=== PATIENT | male | born 1995 | race African-American/Black ===

== ENCOUNTER 2019-12-27 09:35 | Emergency (ER) | payer SELFPAY ==
[~2019-12-27] VITALS: Ht 180.3 cm; Wt 102.5 kg
[2019-12-27] MEDS ORDERED: ONDANSETRON HCL 4 MG ORAL DISINTEGRATING TAB ONE (09:47)
[2019-12-27] MEDS ORDERED: SODIUM CHLORIDE 0.9% 1000ML 1,000 ML IV STA ×2 (09:50→11:18)
[2019-12-27] MEDS ORDERED: PANTOPRAZOLE 40 MG 10ML VIAL IV STA (09:50)
[2019-12-27] MEDS ORDERED: KETOROLAC TROMETHAMINE 30 MG/ML VIAL IV STA (09:50)
[2019-12-27] MEDS ORDERED: ONDANSETRON HCL INJ 2MG/ML 2ML 2 MG/ML VIAL IV STA (09:50)
[2019-12-27] MEDS ORDERED: MORPHINE SULFATE INJ 4 MG/ML INJ 1ML IV STA (09:57)
[2019-12-27] MEDS ORDERED: ONDANSETRON HCL 4 MG ORAL DISINTEGRATING TAB PO ONE (10:00)
[2019-12-27 10:29] LABS: BASOPHILS # (AUTO) 0.1 (0.0-0.1); BASOPHILS % 1.1 % (0.0-1.0); EOSINOPHILS # (AUTO) 0.1 (0.0-0.4); EOSINOPHILS % 1.1 % (0.0-6.0); HEMATOCRIT 52.3 % (38.2-49.6); LYMPHOCYTES # (AUTO) 1.6 (1.0-3.2); LYMPHOCYTES % 21.5 % (18.0-39.1); MEAN CORPUSCULAR HEMOGLOBIN 32.4 pg (28-32); MEAN CORPUSCULAR HGB CONC 36.3 g/dL (31-35); MEAN CORPUSCULAR VOLUME 89.2 fL (81-99); MONOCYTES # (AUTO) 0.5 (0.2-0.8); MONOCYTES % 7.1 % (4.4-11.3); NEUTROPHILS % 68.7 % (38.7-80.0); PLATELET COUNT 280 x10e3/uL (140-360); RED BLOOD COUNT 5.86 x10e6/uL (4.3-5.7); RED CELL DISTRIBUTION WIDTH 11.9 % (11.7-14.4)
--- NOTE | 2019-12-27 10:29 | Diagnostic Imaging Report ---
EXAMINATION: CHEST SINGLE (PORTABLE) INDICATION: Shortness of breath, abdominal pain COMPARISON: None FINDINGS: LINES/TUBES:None LUNGS:The lungs are well-inflated. No focal consolidation or pulmonary edema. PLEURA:No pleural effusion or pneumothorax. MEDIASTINUM:The cardiomediastinal silhouette appears normal in size and shape. BONES/SOFT TISSUES:No acute osseous injury. ABDOMEN:No free air under the diaphragm. IMPRESSION: No focal pneumonia or pulmonary edema. Signed by: Betty Anne MD on 12/27/2019 10:25 AM
[2019-12-27] MEDS ORDERED: HALOPERIDOL 5 MG TAB PO ONE (10:30)
[2019-12-27 10:54] LABS: ALANINE AMINOTRANSFERASE 15 IU/L (0-55); ALBUMIN/GLOBULIN RATIO 1.6 (0.8-2.0); ALKALINE PHOSPHATASE 48 IU/L (40-150); ANION GAP 18.9 mmol/L (8-16); BLOOD UREA NITROGEN 14 mg/dL (7-26); BUN/CREATININE RATIO 12 (6-25); CALCIUM 10.4 mg/dL (8.4-10.2); CARBON DIOXIDE 23 mmol/L (22-29); CHLORIDE 103 mmol/L (98-107); CREATININE, SERUM 1.13 mg/dL (0.72-1.25); EST GLOMERULAR FILTRATION RATE > 60 ML/MIN (60-); GLUCOSE 103 mg/dL (74-118); MAGNESIUM 2.1 MG/DL (1.3-2.1); POTASSIUM 3.9 mmol/L (3.5-5.1); SODIUM 141 mmol/L (136-145)
[2019-12-27] MEDS ORDERED: IOPAMIDOL 370 MG/ML 200 ML INFUS..BTL INJ ONE (11:08)
[2019-12-27] MEDS ORDERED: SODIUM CHLORIDE 0.9% 50ML 50 ML ONE (11:08)
[2019-12-27 11:18] LABS: INR 0.93; PARTIAL THROMBOPLASTIN TIME 26.7 seconds (23.8-35.5)
--- NOTE | 2019-12-27 11:37 | Diagnostic Imaging Report ---
EXAM: CT Abdomen and Pelvis WITH intravenous contrast INDICATION: Right lower quadrant abdominal pain COMPARISON: Chest radiograph of the same day TECHNIQUE: Abdomen and pelvis were scanned utilizing a multidetector helical scanner from the lung base to the pubic symphysis after administration of IV contrast. Coronal and sagittal reformations were obtained. Routine protocol was performed. Scan was performed during portal venous phase. IV CONTRAST: 100mL of Isovue 370 ORAL CONTRAST: Water RADIATION DOSE: Total DLP: 476 mGy*cm Dose modulation, iterative reconstruction, and/or weight based adjustment of the mA/kV was utilized to reduce the radiation dose to as low as reasonably achievable. FINDINGS: LOWER THORAX: Normal. HEPATOBILIARY: No focal liver lesion. No biliary ductal dilation. Normal gallbladder. SPLEEN: No splenomegaly. PANCREAS: No focal masses or ductal dilatation. ADRENALS: No adrenal nodules. KIDNEYS/URETERS: No renal calculi or hydronephrosis. Abnormal rotation of the right kidney, likely congenital. PELVIC ORGANS/BLADDER: Unremarkable. PERITONEUM / RETROPERITONEUM: No free air or fluid. LYMPH NODES: No lymphadenopathy. VESSELS: Unremarkable. GI TRACT: No abnormal bowel thickening. No bowel obstruction. Normal appendix. BONES AND SOFT TISSUES: No acute osseous injury. No suspicious lytic or blastic lesions. IMPRESSION: No acute findings in the abdomen or pelvis. Specifically, no evidence of appendicitis. Signed by: Betty Anne MD on 12/27/2019 11:34 AM
[2019-12-27] MEDS ORDERED: PROMETHAZINE 25MG/ NS 50ML (IV) IV ONE (12:00)
[2019-12-27] MEDS ORDERED: PROMETHAZINE 25MG/SOD CHL 0.9% 50 ML ONE (12:08)
--- OUTSIDE RECORDS SUMMARY | 2019-12-27 19:22 | XMS REPORT ---
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 Allergies, Adverse Reactions, Alerts Allergy Name Allergy Type Status Severity Reaction(s) Onset Date Inacti ve Date Treating Clinician Comments No Known Allergies DA Active U 2019-07-08 00:00:00 No Known Drug Intolerances DA Active U 2009-12-03 00 :00:00 No Known Intolerances DA Active U 2009-12-03 00:00:0 0 Medications This patient has no known medications. Results Test Description Test Time Test Comments Text Results Atomic Results Result Comments CT ABDOMEN/PELVIS W 2019-12-27 11:30:00 [facility] [address] [address] Patient Name: RAVINDRA BRAXTON MR #: [id number] : 1995 Age/Sex: 24/M Req #: [id number] Adm Physician: Ordered by: INDY GAINES MD Report #: [id number] Location: ER Room/Bed: Procedure: [id number] CT/CT ABDOMEN/PELVIS W Exam Date: 12/27/19 Exam Time: 1110 REPORT STATUS: Signed EXAM: CT Abdomen and Pelvis WITH intravenous contrast INDICATION: Right lower quadrant abdominal pain COMPARISON: Chest radiograph of the same day TECHNIQUE: Abdomen and pelvis were scanned utilizing a multidetector helical scanner from the lung base to the pubic symphysis after administration of IV contrast. Coronal and sagittal reformations were obtained. Routine protocol was performed. Scan was performed during portal venous phase. IV CONTRAST: 100mL of Isovue 370 ORAL CONTRAST: Water RADIATION DOSE: Total DLP: 476 mGy*cm Dose modulation, iterative reconstruction, and/or weight based adjustment of the mA/kV was utilized to reduce the radiation dose to as low as reasonably achievable. FINDINGS: LOWER THORAX: Normal. HEPATOBILIARY: No focal liver lesion. No biliary ductal dilation. Normal gallbladder. SPLEEN: No splenomegaly. PANCREAS: No focal masses or ductal dilatation. ADRENALS: No adrenal nodules. KIDNEYS/URETERS: No renal calculi or hydronephrosis. Abnormal rotation of the right kidney, likely congenital. PELVIC ORGANS/BLADDER: Unremarkable. PERITONEUM / RETROPERITONEUM: No free air or fluid. LYMPH NODES: No lymphadenopathy. VESSELS: Unremarkable. GI TRACT: No abnormal bowel thickening. No bowel obstruction. Normal appendix. BONES AND SOFT TISSUES: No acute osseous injury. No suspicious lytic or blastic lesions. IMPRESSION: No acute findings in the abdomen or pelvis. Specifically, no evidence of appendicitis. Signed by: Erika Joel MD on 12/27/2019 11:34 AM Dictated By: ERIKA JOEL MD 1134 Transcribed By: ANGLE on 12/27/19 1134 COPY TO: INDY GAINES MD CHEST SINGLE (PORTABLE) 2019-12-27 10:25:00 [address] [place] [address] Patient Name: RAVINDRA BRAXTON MR #: [id number] : 1995 Age/Sex: 24/M Req #: [id number] Adm Physician: Ordered by: INDY GAINES MD Report #: [id number] Location: ER Room/Bed: Procedure: [id number] DX/CHEST SINGLE (PORTABLE) Exam Date: 12/27/19 Exam Time: 1006 REPORT STATUS: Signed EXAMINATION: CHEST SINGLE (PORTABLE) INDICATION: Shortness of breath, abdominal pain COMPARISON: None FINDINGS: LINES/TUBES:None LUNGS:The lungs are well-inflated. No focal consolidation or pulmonary edema. PLEURA:No pleural effusion or pneumothorax. MEDIASTINUM:The cardiomediastinal silhouette appears normal in size and shape. BONES/SOFT TISSUES:No acute osseous injury. ABDOMEN:No free air under the diaphragm. IMPRESSION: No focal pneumonia or pulmonary edema. Signed by: Erika Joel MD on 12/27/2019 10:25 AM Dictated By: ERIKA JOEL MD 1025 Transcribed By: ANGLE on 12/27/19 1025 COPY TO: INDY GAINES MD - XR TIBIA/FIBULA 2 V RT 2019-07-08 04:42:00 N kim: RAVINDRA BRAXTON [facility] : 1995 Age/S:24 /M [address] [facility] Unit#:[id number] Loc: [place] [address] Phys: Skyla Parikh MD Dis Date: PHONE #: [phone] Status: REG ER FAX #: [phone] Exam Date: 07/08/2019 Reason: LACERATION CALF EXAMS: CPT CODE: [id number] XR TIBIA/FIBULA 2 V RT [id number] - XR TIBIA/FIBULA 2 V RT, 07/08/2019 4:19 AM Reason For Examination: LACERATION CALF Comparison: None available Location: R16: Findings: No evidence of acute fracture or dislocation. No radiopaque foreign body. Prominent soft tissue laceration seen along the posterior lateral medial aspect of the calf is noted containing subcutaneous edema and air Impression: No evidence of acute fracture or dislocation. No radiopaque foreign body. Prominent soft tissue laceration seen along the posterior lateral medial aspect of the calf is noted containing subcutaneous edema and air at 0442 Reported and signed by: Bettie Franco M.D. CC: Technologist: MISAEL RESENDIZ RT(R),CT Trnscrpt Data: 07/08/2019 (0442) [email or web address] Orig Print D/T: S: 07/08/2019 (0446) PAGE 1 Signed Report
== END 2019-12-27 12:39 | disposition home or self-care (01) ==
LOC: ER 09:35 → ICU 19:20 → UNDOADMIN 19:20
DX: R10.84 Generalized abdominal pain (principal); R10.31 Right lower quadrant pain; R11.2 Nausea with vomiting, unspecified
CPT/HCPCS: 36415; 71045; 74177; 80053; 83735; 85025; 85610; 85730; 99284; C9113; J2405; J2550; J7030; Q0162; Q9967; J1885; J2270